=== PATIENT | female | born 1970 | race Caucasian/White ===

== ENCOUNTER → 2021-04-29 14:51 | Outpatient (CLI) | payer OTHER, SELFPAY ==
--- NOTE | 2021-04-29 | DI.RAD.S_ITS ---
PROCEDURE: XR THORACIC SPINE 2V INDICATIONS: PAIN IN THORACIC,LUMBAR,CERVICAL SPINE TECHNIQUE: 3 views of the thoracic spine were acquired. COMPARISON: [facility], CR, XR LUMBAR SPINE MIN 4V, 04/29/2021, 15:02. FINDINGS: Bones: No fractures or dislocations. No suspicious bony lesions. [id number] degenerative disc disease, most pronounced at T7-T8, T8-T9, T9-T10, T10-T11, T11-T12. 12 pairs of ribs are noted, and appear intact where visualized. Soft tissues: No paravertebral stripe thickening. IMPRESSION: [id number] degenerative disc disease in thoracic spine. Dictated by: Margarito Chris M.D. on 04/29/2021 at 17:07 Approved by: Margarito Chris M.D. on 04/29/2021 at 17:09
--- NOTE | 2021-04-29 14:57 | DI.RAD.S_ITS ---
PROCEDURE: XR CERVICAL SPINE 4V OR 5V INDICATIONS: PAIN IN THORACIC,LUMBAR,CERVICAL SPINE TECHNIQUE: 5 views of the cervical spine were acquired. COMPARISON: None. FINDINGS: Bones: No fractures or dislocations to the C7 level. No suspicious bony lesions. Multilevel mild disc space narrowing and endplate osteophyte formation. Mild grade 1 anterolisthesis of C3 on C4 and C4 on C5 with flexion, which reduces with neutral and extension positioning. Facet hypertrophy throughout the mid and lower cervical spine. Probable C2-C3:. Soft tissues: Prevertebral soft tissues are normal in thickness. IMPRESSION: 1. Mild instability at C3-C4 and C4-C5. 2. Multilevel degenerative disc and facet disease. Dictated by: Tosin Kaiser M.D. on 04/29/2021 at 15:55 Approved by: Tosin Kaiser M.D. on 04/29/2021 at 16:56
--- NOTE | 2021-04-29 14:57 | DI.RAD.S_ITS ---
PROCEDURE: XR LUMBAR SPINE MIN 4V INDICATIONS: PAIN IN THORACIC,LUMBAR,CERVICAL SPINE TECHNIQUE: 5 views of the lumbar spine acquired, including flexion and extension views. COMPARISON: None. FINDINGS: Bones: 5 nonrib-bearing vertebrae are present. There is normal bony alignment. No vertebral body compression fractures. No suspicious bony lesions. Mild L1-L2, L2-L3, L3-L4 and L4-L5 degenerative disc disease. Soft tissues: Overlying bowel gas pattern is normal. No suspicious soft tissue calcifications. Flexion/extension: There is normal range of motion, with preserved normal alignment. IMPRESSION: 1. Mild multilevel degenerative disc disease. 2. No acute osseous lesion. If symptoms and/or clinical suspicion for pathology persists, evaluation with MRI should be considered for further assessment. Dictated by: Shelby Silvestre MD, PhD on 04/29/2021 at 17:46 Approved by: Shelby Silvestre MD, PhD on 04/29/2021 at 17:47
== END ==
PROVIDERS: Referring Provider Chiropractor; Visit Provider Chiropractor
DX: M50.320 Other cervical disc degeneration, mid-cervical region, unspecified level (principal); M51.34 Other intervertebral disc degeneration, thoracic region; M51.36 Other intervertebral disc degeneration, lumbar region; M99.11 Subluxation complex (vertebral) of cervical region; M99.02 Segmental and somatic dysfunction of thoracic region; M99.03 Segmental and somatic dysfunction of lumbar region; M99.04 Segmental and somatic dysfunction of sacral region; M99.05 Segmental and somatic dysfunction of pelvic region; M54.50 Low back pain, unspecified
CPT/HCPCS: 72050; 72070; 72110

== ENCOUNTER → 2024-01-16 14:25 | Outpatient (ROUT) | payer OTHER, SELFPAY ==
[2024-01-16 15:07] LABS: T4 Total Thyroxine 6.25 ug/dL (5.5-11.0)
[2024-01-16 15:21] LABS: Thyroid Stimulating Hormone 1.38 uIU/mL (0.47-4.68)
[2024-01-17 22:38] LABS: Triiodothyronine T3 Total 67 ng/dL (71-180)
== END ==
PROVIDERS: Visit Provider Family Medicine
DX: E03.9 Hypothyroidism, unspecified (principal)
CPT/HCPCS: 84436; 84443; 84480

== ENCOUNTER → 2024-03-21 13:25 | Outpatient (ROUT) | payer OTHER, SELFPAY ==
[2024-03-21 14:08] LABS: Free T3, Triiodothyronine Free 3.46 pg/mL (2.77-5.27); Free T4, Direct Thyroxine 1.04 ng/dL (0.78-2.19)
== END ==
PROVIDERS: Visit Provider Family Medicine
DX: E03.9 Hypothyroidism, unspecified (principal)
CPT/HCPCS: 84439; 84443; 84481